=== PATIENT | male | born 1970 | race Caucasian/White ===

== ENCOUNTER 2017-09-26 03:25 | Emergency (ER) | payer SELFPAY ==
[~2017-09-26] VITALS: Ht 172.7 cm; Wt 109.3 kg
[2017-09-26 03:40] VITALS: Ht 172.7 cm; Wt 109.3 kg
[2017-09-26 05:33] VITALS: BP 135/73
== END 2017-09-26 05:33 | disposition home or self-care (01) ==
LOC: ED 03:25
DX: N20.0 Calculus of kidney (principal)